=== PATIENT | male | born 1960 | race Caucasian/White ===

== ENCOUNTER → 2018-04-03 16:18 | Outpatient (CLI) | payer OTHER, SELFPAY ==
--- NOTE | 2018-04-03 16:20 | RAD_ITS ---
STUDY: X-RAY - LEFT HAND, ATTENTION FOURTH FINGER REASON FOR EXAM: Male, 58 years old. Pain TECHNIQUE: 3 view(s) of the finger were obtained. COMPARISON: None. FINDINGS: Normal metacarpal head. Normal metacarpophalangeal joint. Normal proximal phalanx. Normal middle phalanx. There is a possible avulsion fracture of the proximal dorsal aspect of the distal phalanx seen only on the lateral view Normal proximal interphalangeal joint. Normal distal interphalangeal joint. RAD/Finger(s) Min 2 Views IMPRESSION: Possible avulsion fracture of the proximal dorsal aspect of the distal phalanx with soft tissue swelling seen only on the lateral view Electronically Signed: Oswaldo Laureano MD at 17:11 EST , Service support ,
== END ==
PROVIDERS: Family Provider Family Medicine; PCP Family Medicine; Referring Provider Physician Assistant; Visit Provider Physician Assistant
DX: S61.215A Laceration without foreign body of left ring finger without damage to nail, initial encounter (principal)
CPT/HCPCS: 73140

== ENCOUNTER 2018-12-15 09:16 | Emergency (ER) | payer OTHER, SELFPAY ==
[2018-12-15 09:17] VITALS: BP 133/93; PULSE 64; RESP 17; TEMP 36.7; O2SAT 98; BMI 29.7
--- NOTE | 2018-12-15 09:30 | RAD_ITS ---
STUDY: X-RAY CHEST REASON FOR EXAM: Male, 58 years old. Chest pain. TECHNIQUE: Single AP portable view of the chest. COMPARISON: Comparison is made with prior study dated January 16, 2017. FINDINGS: EKG electrodes are seen. There is evidence of vascular congestion and mild CHF. Scattered calcified granulomas. There is no demonstrated pleural abnormality. Normal size heart. Normal mediastinum and mikhail. Normal visualized pulmonary arteries. Normal visualized aortic arch and descending thoracic aorta. Normal visualized thoracic spine. Normal visualized ribs, clavicles, and shoulders. There is no demonstrated abnormality of the visualized soft tissue structures of the upper abdomen. RAD/Chest 1 View (Portable) IMPRESSION: Mild vascular congestion and CHF. Calcified old granulomatous disease. Electronically Signed: Joel Cash, at 10:04 EDT , Service support ,
--- NOTE | 2018-12-15 09:34 | EKG12_ITS ---
Test Reason : UPPER EXTREMITY Blood Pressure : / mmHG Vent. Rate : 058 BPM Atrial Rate : 058 BPM P-R Int : 172 ms QRS Dur : 092 ms QT Int : 422 ms P-R-T Axes : 030 -19 -08 degrees QTc Int : 414 ms Sinus bradycardia Inferior UT, age undetermined, cannot be excluded Confirmed by TEJA TAVERAS, MARICRUZ ([id number]), film and video editor MARTITA ARGUETA ([id number]) on 12/17/2018 10:45:16 AM Referred By: RAJ Confirmed By:MARICRUZ LEZAMA MD
--- NOTE | 2018-12-15 09:34 | NURSING ---
NO OLD EKGS
--- NOTE | 2018-12-15 09:35 | ED.DCSUM_ITS ---
History of Present Illness Chief Complaint: Upper Extremity Injury Informant: Patient, Significant Other Onset: Today - Atraumatic left arm pain with onset 1 hour prior to presentation, Yesterday - One episode while driving home from [facility] and one episode while doing work in the back. Both episodes lasted 15 minutes. Context: Onset with activity - Show that occurred yesterday afternoon occurred with activity otherwise the first episode occurred while driving and today's episode occurred while driving his tractor., Sudden Onset Timing: Continuous - Today, Intermittent - Today x2 Quality: Intense left arm pain Location: Left arm/bicep Current Severity: Mild Maximum Severity: Severe Worsened by: Nothing Relieved by: Nothing Associated Symptoms: No associated symptoms Narrative: Patient is a 58-year-old healthy male who is a non-smoker that occurred x2 yesterday and once today. The first episode yesterday occurred while driving and lasted 15 minutes. There was no associated symptoms or radiation. Movement did not make a difference. Second episode that occurred yesterday occurred while doing work in the back with his . This episode lasted 15 minutes and no associated symptoms or radiation. Possibly 1 hour prior to presentation he developed intense left arm pain while riding on his tractor. He was not using the extremity. He states movements or use of the arm does not make the pain worse. Patient states he took 2 aspirin prior to arrival. He has no known history of coronary disease. He denies black or maroon stool. He denies history of PE or DVT. He denies leg pain, swelling discoloration. Upon further questioning patient admits to edema of his lower extremities after traumatic injury, remote past Prior similar symptoms: No Recent Illness/Hospitalization: No - Past Medical History (1) No significant past medical history Status: Acute Past Medical History - Allergies and Home Meds Allergies/Adverse Reactions: Allergies No Known Allergies Allergy (Unverified 12/15/18 09:17) Primary Care Physician: Steve James DO [Primary Care Provider] - Past Medical History: None Surgical History: no surgical history Lives: Spouse/ Significant Other Smoking Status: Never smoker Alcohol: None Drugs: None Review of Systems General: Denies: Chills, Fever, Sweats Eyes: Denies: Visual changes - bilaterally, Diplopia ENT: Denies: Rhinorrhea, Sore throat Cardiovascular: Reports: Chest pain. Denies: Palpitations, Heart racing, -, - Respiratory: Denies: Dyspnea, Cough, Dyspnea on exertion Gastrointestinal: Denies: Abdominal pain, Nausea, Vomiting, Diarrhea, Melena, Hematochezia Genitourinary: Denies: Dysuria, Hematuria, Frequency Musculoskeletal: Denies: Myalgias, Arthralgias, Neck pain, Back pain, Swelling, Extremity Pain Skin: Denies: Rash, Wounds Neurological: Denies: Headache, Weakness, Numbness Hematologic: Denies: Easy bruising, Easy bleeding Physical Exam Vital Signs/Narrative: Vital Signs Temp Pulse Resp BP Pulse Ox 12/15/18 09:17 98.0 F 64 17 133/93 H 98 Inital Vital Signs reviewed: Yes General: Well nourished, Well developed, No Acute Distress Head: Normocephalic, Atraumatic Eyes: Perrl, EOMI ENT: Moist mucous membranes, No rhinorrhea Neck: Supple, Nontender, No lymphadenopathy, No JVD Cardiovascular: Regular rate, Regular rhythm, No murmurs, Normal S1, Normal S2 Respiratory: No distress, CTA bilaterally, Chest nontender Abdomen: Soft, Nontender, Nondistended, Normal bowel sounds Back: Nontender, Normal Inspection Extremities: Nontender, No edema, - - Radial pulses 2+ and symmetric. There is no discomfort with full active range of motion active and passive left wrist, shoulder and elbow. There is no evidence of trauma. Skin: Normal color, No rash Neurological: Alert, Oriented x3, Cranial nerves II-XII grossly intact, Normal Strength, Normal Sensation, Normal Gait Psychological: Normal affect, Normal Mood Diagnostic/Tx/Re-eval Impressions Chest X-Ray 12/15/18 09:30 IMPRESSION: Mild vascular congestion and CHF. Calcified old granulomatous disease. Electronically Signed: Joel Cash, at 10:04 EDT , Service support , 12/15/18 09:30 Chest 1 View (Portable) [RAD] Stat Laboratory Results 12/15/18 12/15/18 12/15/18 10:00 10:00 12:30 WBC 5.3 RBC 4.90 Hgb 15.2 Hct 45.2 MCV 92.2 MCH 31.0 MCHC 33.6 RDW Std Deviation 43.0 RDW Coeff of Johnie 12.8 Plt Count 336 MPV 8.7 Immature Gran % (Auto) 0.400 Neut % (Auto) 67.9 Lymph % (Auto) 15.9 L [place]ola % (Auto) 11.6 H Eos % (Auto) 3.4 Baso % (Auto) 0.8 Absolute Neuts (auto) 3.6 Absolute Lymphs (auto) 0.84 Nucleated RBC % 0 Sodium 142 Potassium 4.1 Chloride 109 H Carbon Dioxide 29.0 Anion Gap 4 L BUN 24 H Creatinine 0.81 Estim Creat Clear Calc 84.36 Est GFR (MDRD) Af Amer 125 Est GFR (MDRD) Non-Af 103 BUN/Creatinine Ratio 29.6 H Glucose 94 Calcium 8.7 Troponin I < 0.015 < 0.015 With a heart score of 0 and a delta troponin of 0 patient will be discharged home to follow-up with primary care physician. - Medical Decision Making To evaluate patient's left atraumatic arm pain need to evaluate for cardiac etiology versus noncardiac etiology. Since pain is not reproducible and there are no neurovascular findings doubt traumatic or secondary to atherosclerotic disease. Will obtain EKG, troponin to assess for cardiac ischemia. Heart score of 0 and a delta troponin of 0 and a normal EKG will discharge to home to follow-up with PCP. ED Disposition - Plan for ED Patient: Disposition: Home or Assisted Living Diagnosis: Left upper arm pain Instructions: PAIN, Uncertain Cause (Acute) Referrals: Steve James DO [Primary Care Provider] - 3-5 Days
--- NOTE | 2018-12-15 09:58 | ED.RN ---
IS COMPLAINING ABOUT PT HAVE AN IV. DOES NOT THINK IT IS NEEDED. HOWEVER THE PT STATED IN TRIAGE THAT HE WAS WORRIED IT WAS CARDIAC.
--- NOTE | 2018-12-15 10:02 | ED.RN ---
PT IS DENING PAIN AT THIS TIME, DENIES NEED FOR NITRO.
[2018-12-15 10:03] VITALS: BP 144/91; PULSE 65; RESP 20; O2SAT 96; O2SAT 97
[2018-12-15 10:11] LABS: Absolute Lymphocyte Count 0.84 X10^3/uL (0.83-4.51); Absolute Neutrophil Count 3.6 X10^3/uL (2.0-7.7); Basophil# 0.04 X10^3/uL; Basophil% 0.8 % (0-1); Eosinophil# 0.18 X10^3/uL; Eosinophils% 3.4 % (0-5); Hematocrit 45.2 % (40-54); Hemoglobin 15.2 g/dL (13.0-16.5); Lymphocyte # 0.84 X10^3/ul (4.0); Lymphocyte % 15.9 % (19-41); Mean Corp Hgb Conc 33.6 g/dL (32-36); Mean Corpuscular Volume 92.2 fL (80-94); Mean Platelet Vol. 8.7 fl (6.2-12.0); Monocyte# 0.61 X10^3/uL; Monocyte% 11.6 % (0-10); NRBC Flagged by Analyzer 0 % (0-5); Neutrophil # 3.59 X10^3/uL (2.7-7.7); Neutrophil % 67.9 % (47-70); Platelet Count 336 K/mm3 (150-450); RBC Distribution Width CV 12.8 % (11.6-14.6); White Blood Count 5.3 K/mm3 (4.4-11.0)
[2018-12-15 10:34] LABS: Anion Gap 4 (5-15); BUN 24 mg/dL (7-18); BUN/Creat Ratio 29.6 RATIO (10-20); Calcium,Total 8.7 mg/dL (8.5-10.1); Chloride 109 mmol/L (98-107); Creatinine, Serum 0.81 mg/dL (0.70-1.30); EST Glomerular Filtration Rate 103 mL/min (>60); Est Glom Filt Rate - Afr Amer 125 mL/min (>60); Estimated Creatinine Clearance 84.36 ml/min; Glucose 94 mg/dL (74-106); Potassium 4.1 mmol/L (3.5-5.1); Sodium Level 142 mmol/L (136-145)
[2018-12-15 12:39] VITALS: PULSE 89; RESP 14; O2SAT 98
== END 2018-12-15 14:10 | disposition home or self-care (01) ==
PROVIDERS: Emergency Provider Emergency Medicine; Family Provider Family Medicine; PCP Family Medicine
DX: M79.622 Pain in left upper arm (principal)
CPT/HCPCS: 71045; 80048; 84484; 85025; 93005; 99284; A4216

== ENCOUNTER 2021-05-08 09:13 | Outpatient (CLI) | payer OTHER, SELFPAY ==
[2021-05-08 10:06] LABS: Absolute Lymphocyte Count 0.86 X10^3/uL (0.83-4.51); Absolute Neutrophil Count 3.3 X10^3/uL (2.0-7.7); Basophil# 0.05 X10^3/uL; Eosinophil# 0.26 X10^3/uL; Hemoglobin 14.6 g/dL (13.0-16.5); Lymphocyte # 0.86 X10^3/ul (0.83-4.51); Lymphocyte % 16.5 % (19-41); Mean Corp Hgb Conc 33.2 g/dL (32-36); Mean Corpuscular Hgb 30.6 pg (27.0-32.0); Mean Corpuscular Volume 92.2 fL (80-94); Monocyte# 0.78 X10^3/uL; Monocyte% 14.9 % (0-10); NRBC Flagged by Analyzer 0 % (0-5); Neutrophil # 3.25 X10^3/uL (2.7-7.7); Neutrophil % 62.2 % (47-70); Platelet Count 323 K/mm3 (150-450); RBC Distribution Width CV 13.2 % (11.6-14.6); RBC Distribution Width SD 45.2 fl (35.1-43.9); Red Blood Count 4.77 M/mm3 (4.6-6.2); White Blood Count 5.2 K/mm3 (4.4-11.0)
[2021-05-08 10:53] LABS: AST(SGOT) 28 U/L (15-37); Alanine Aminotransfer ALT/SGPT 37 U/L (16-61); Albumin, Serum 3.4 g/dL (3.2-5.0); Alkaline Phosphatase 89 U/L (45-117); Anion Gap 3 (5-15); BUN 27 mg/dL (7-18); Calcium,Total 8.5 mg/dL (8.5-10.1); Chloride 111 mmol/L (98-107); Cholesterol 140 mg/dL (200); Creatinine, Serum 0.82 mg/dL (0.70-1.30); EST Glomerular Filtration Rate 101 mL/min (>60); Est Glom Filt Rate - Afr Amer 122 mL/min (>60); Globulin 3.3 g/dL (2.2-4.2); Glucose 86 mg/dL (74-106); High Density Lipoprotein 41 mg/dL; PSA,Total - Annual Screen 0.68 ng/mL (0.00-4.00); Potassium 4.1 mmol/L (3.5-5.1); Protein, Total 6.7 g/dL (6.4-8.2); Sodium Level 142 mmol/L (136-145); Triglycerides 57 mg/dL; Very Low Density Lipoprotein 11 mg/dL (5-40)
== END 2021-05-08 23:59 | disposition home or self-care (01) ==
PROVIDERS: PCP Family Medicine; Referring Provider Family Medicine; Visit Provider Family Medicine
DX: Z00.00 Encounter for general adult medical examination without abnormal findings (principal); Z12.5 Encounter for screening for malignant neoplasm of prostate
CPT/HCPCS: 36415; 80053; 80061; 84153; 85025; G0103

== ENCOUNTER 2021-08-01 13:00 | Day surgery (SDC) | payer OTHER, SELFPAY ==
--- NOTE | 2021-07-23 14:00 | IMM_PTH ---
PATIENT: DANTE TAM LOC: [facility] U#:[id number] AGE/SX: 61/M ROOM: RE08/01/[address]: Dr. Manjinder Monreal DO : 1960 BED: DIS: 08/01/2021 SPEC #: [id number] RECD: 08/02/21 09:17 STATUS: HOSSEIN REIram #: [id number] FELICIA: 07/23/21 14:[address]: Manjinder Monreal DEPT: IMMUNOHISTOCHEMISTRY RECD BY: Sandy Del Angel ENTERED: 08/02/21 09:19 SP TYPE: IMMUNO OTHR DR: Dr. Steve James DO Tissues: B - Stomach, NOS Procedures: H Pylori (initial) PHYSICIAN & INSTITUTION [place] [id number] SPECIMEN INFORMATION: Tissue Source: B ? Gastric antrum biopsy Clinical Info: TENZIN, colonic polyps Specimen Number: [id number] CPT code: 75063 METHODOLOGY: Deparaffinized sections of prefer/formalin-fixed tissue or PAP/DQ stained slides are incubated with monoclonal/polyclonal antibodies/oligonucleotide probes. Localization is made via biotin free immunoperoxidase method. Appropriate controls are performed and reacted as expected. Results on target cell population are indicated in the following table: RESULTS: ANTIBODY / CLONE RESULT Block B H Pylori (polyclonal) negative These tests were developed and their performance characteristics determined by [facility]. They may not have been cleared or approved by the U.S. Food and Drug Administration. The FDA has determined that such clearance or approval is not necessary. The above immunohistochemical/dualISH markers are ordered and reviewed by the Pathologist. INTERPRETATION: B. Gastric antrum, biopsy: Negative for Helicobacter pylori organisms. SJ:laurence 08/03/2021
[2021-08-01] VITALS (7 sets, daily range): BP systolic 110–125; BP diastolic 72–103; PULSE 54–67; RESP 16–20; TEMP 36.1–36.6; O2SAT 96–98; BMI 27.3
--- NOTE | 2021-08-01 13:21 | HP.PCM_ITS ---
History and Physical Date of Admission: 08/01/21 No Known Allergies Allergy (Unverified 05/30/21 13:09) Medications cholecalciferol (vitamin D3) 50 mcg (2,000 unit) capsule 4,000 unit PO DAILY cap 05/30/21 [History Confirmed 05/30/21] meloxicam 7.5 mg tablet 7.5 mg PO DAILY 05/30/21 [History Confirmed 05/30/21] omega-3 fatty acids-fish oil 300 mg-500 mg capsule cap PO 05/30/21 [History Confirmed 05/30/21] omeprazole 20 mg capsule,delayed release 20 mg PO DAILY 05/30/21 [History Confirmed 05/30/21] PFSH Medical History Back pain GERD (gastroesophageal reflux disease) Hx of colonic polyps Family History Father Hypertension Mother Thyroid disorder Social History Smoking Status: Never smoker alcohol intake: never substance use type: does not use what type of physical activity do you participate in: walking frequency: daily HPI HPI Details: DANTE TAM, is a 61 M who presents to the office today for GERD. Heartburn if he misses dose of omeprazole 20 mg daily. Has taken it for many years. Occas takes TUMS at night depending on what he eats. Has tried esomeprazole w/o relief. No dysphagia. Had EGD years ago. No hx of Beatty's esophagus. Overdue for screening colonoscopy. Hx of polyps on his first colonoscopy, told they were pre-cancerous. No diarrhea, constipation, melena, hematochezia. ROS Const Constitutional: No fatigue, fever(s), headache(s), weight change, sleep problems, abnormal sleep pattern or change in appetite ENT ENT: No headache(s), difficulty swallowing, hoarseness or sore throat Resp Respiratory: No cough, hemoptysis or shortness of breath Cardio Cardiology: Positive for leg pain with exertion; No chest pain at rest or generalized swelling Gastro GI: Positive for heartburn; No abdominal pain, belching, bloating, change in bowel habits, change in stool character, coffee ground emesis, constipation, cramping, diarrhea, difficulty swallowing, feeling full early, incontinent of stools, Vomiting blood/hemate mesis, Blood in stool, loose stools, Black,tarry stools, nausea/dyspepsia, pain with swallowing or vomiting Musc Musculoskeletal: Positive for back pain, stiffness, sciatica, leg pain at night and leg pain with exertion; No joint pain, joint swelling, numbness or tingling Skin Skin: No itchy eyes or rash Neuro Neurology: No behavioral changes, confusion, headache(s), numbness or tingling Psych Psychiatric: No abnormal sleep pattern, No anxiety, No behavioral changes, No change in appetite, No confusion and No depression Endo Endocrine: No cold intolerance, fatigue, heat intolerance, increased thirst/drinking or weight change Aller/Imm Allergy/Immunologic: No food intolerance or itchy eyes Yoni/Lymp Hematologic/Lymphatic: No easy bleeding, easy bruising or enlarged lymph nodes Exam Const General: cooperative, healthy appearing, comfortable, no acute distress, well developed and well groomed GI Inspection: normal to inspection Quality Reporting Tobacco Screening ([facility]) Smoking Status: Never smoker Assessment and Plan Assessment and Plan (1) GERD (gastroesophageal reflux disease): Status: Acute (2) Hx of colonic polyps: Status: Inactive Plan: 61-year-old male with long history of GERD, typically well managed with omeprazole 20 mg every morning. He does sometimes need Tums in the evening. He can try taking omeprazole 20 mg every morning. History of colon polyps that he was told were precancerous. Last colonoscopy more than 10 years ago. He is scheduled for EGD to evaluate for esophagitis, Beatty's, gastritis; and scheduled for colonoscopy on August 01. Coding Level of Care Code Off vis,new,level 2 Diagnoses GERD (gastroesophageal reflux disease) K21.9 Hx of colonic polyps Z86.010 I have re-examined the patient. There are no clinical changes since date of exam.
[2021-08-01] MEDS: Lactated Ringers 1,000 ML 15 ML IV (13:27)
--- NOTE | 2021-08-01 14:00 | EGD_PTH ---
PATIENT: DANTE TAM LOC: [facility] U#:[id number] AGE/SX: 61/M ROOM: RE08/01/[address]: Dr. Manjinder Monreal DO : 1960 BED: DIS: 08/01/2021 SPEC #: [id number] RECD: 08/01/21 16:19 STATUS: HOSSEIN TRAVIS #: [id number] FELICIA: 08/01/21 14:[address]: Manjinder Monreal DEPT: SURGICAL PATHOLOGY RECD BY: Teo Zelaya ENTERED: 08/02/21 09:39 SP TYPE: EGD BIOPSY OT DR: Dr. Steve James DO Tissues: A - Esophagus, NOS B - Gastric mucous membrane Procedures: Special Stain Group II Surgery Specimen Level IV Alcian Blue/PAS (control) HEADER OPERATION: Colonoscopy, EGD ([facility]), biopsy PRE-OP DIAGNOSIS: GERD, history of colonic polyps TISSUE SUBMITTED: A ? Distal esophagus biopsy, B - Gastric antrum biopsy MICROSCOPIC DIAGNOSIS A. Distal esophagus, biopsy: Fragments of gastroesophageal mucosa with moderate chronic inflammation. Intestinal metaplasia (goblet cell metaplasia) not identified. See comment. B. Gastric antrum, biopsy: Mild to moderate gastritis. See microscopic description and comment. SJ:rg 08/03/2021 COMMENT A. Alcian blue/PAS stain with matched control is used in the evaluation of the specimen. The specimen predominantly consists of gastric mucosa. B. The results of immunohistochemistry for Helicobacter pylori will be reported separately ([id number]). MICROSCOPIC DESCRIPTION Slides are reviewed. A. The specimen shows fragments of gastric mucosa with chronic inflammatory cell infiltrates in the lamina propria consisting of lymphocytes and plasma cells, consistent with mild to moderate chronic gastritis. GROSS DESCRIPTION A - Received in fixative is one container labeled with the patient's name and designated distal esophagus biopsy. The specimen consists of multiple irregular fragments of light russ soft tissue that in aggregate measure 0.6 x 0.6 x 0.1 cm. The specimen is totally submitted in one cassette. B - Received in fixative is one container labeled with the patient's name and designated gastric antrum biopsy. The specimen consists of two irregular fragments of light russ soft tissue that in aggregate measure 0.6 x 0.5 x 0.1 cm. The specimen is totally submitted in one cassette. / SJ:rg 08/02/2021 TC:3 CPT: 93632 x2, 21539
--- NOTE | 2021-08-01 14:58 | OP.COLON_ITS ---
Patient Name: Girish Allison Procedure Date: 08/01/2021 2:10 PM Date of : 1960 Age: 61 Procedure: Colonoscopy Indications: Screening for colorectal malignant neoplasm Providers: Manjinder Monreal DO Referring MD: Steve James Medicines: Monitored Anesthesia Care Patient Profile: This is a 61 year old male. Refer to note in patient chart for documentation of history and physical. Last Colonoscopy: 5 years ago. Complications: No immediate complications. Procedure: Pre-Anesthesia Assessment: - Prior to the procedure, a History and Physical was performed, and patient medications and allergies were reviewed. The patient is competent. The risks and benefits of the procedure and the sedation options and risks were discussed with the patient. All questions were answered and informed consent was obtained. Patient identification and proposed procedure were verified by the physician in the pre-procedure area. Mental Status Examination: alert and oriented. Airway Examination: normal oropharyngeal airway and neck mobility. Respiratory Examination: clear to auscultation. CV Examination: normal. Prophylactic Antibiotics: The patient does not require prophylactic antibiotics. Prior Anticoagulants: The patient has taken no previous anticoagulant or antiplatelet agents. ASA Grade Assessment: II - A patient with mild systemic disease. After reviewing the risks and benefits, the patient was deemed in satisfactory condition to undergo the procedure. The anesthesia plan was to use moderate sedation / analgesia (conscious sedation). Immediately prior to administration of medications, the patient was re-assessed for adequacy to receive sedatives. The heart rate, respiratory rate, oxygen saturations, blood pressure, adequacy of pulmonary ventilation, and response to care were monitored throughout the procedure. The physical status of the patient was re-assessed after the procedure. After I obtained informed consent, the scope was passed under direct vision. Throughout the procedure, the patient's blood pressure, pulse, and oxygen saturations were monitored continuously. The adult colonoscope was introduced through the anus and advanced to the cecum, identified by appendiceal orifice and ileocecal valve. The colonoscopy was performed without difficulty. The patient tolerated the procedure well. The quality of the bowel preparation was good. Scope In: 2:12:28 PM Scope Withdrawal Time 0 hours 9 minutes 2 seconds Scope Out: 2:48:56 PM Total Procedure Duration Time 0 hours 36 minutes 28 seconds Findings: A few small-mouthed diverticula were found in the recto-sigmoid colon and sigmoid colon. The exam was otherwise without abnormality on direct and retroflexion views. Hemorrhoids were found during retroflexion. Impression: - Diverticulosis in the recto-sigmoid colon and in the sigmoid colon. - The examination was otherwise normal on direct and retroflexion views. - Hemorrhoids. - No specimens collected. Recommendation: - Repeat colonoscopy in 5 years for surveillance. - Continue present medications. Procedure Code(s): --- Professional --- G0121, Colorectal cancer screening; colonoscopy on individual not meeting criteria for high risk CPT copyright 2017 [employer]. All rights reserved. The codes documented in this report are preliminary and upon tractor crane engineer review may be revised to meet current compliance requirements. Manjinder Monreal DO 08/01/2021 2:57:58 PM This report has been signed electronically. Number of Addenda: 1 Note Initiated On: 08/01/2021 2:10 PM Addendum Number: 1 Addendum Date: 12/22/2021 6:24:38 AM MAC was used as sedation for this procedure. Manjinder Monreal DO 12/22/2021 6:24:42 AM This report has been signed electronically.
--- NOTE | 2021-08-01 14:59 | OP.CCLET_ITS ---
12/22/2021 Steve James [address] [facility] [place] [address] Re : Colonoscopy procedure for Girish Allison Dear Dr. James This procedure was performed on Sunday, August 01, 2021. My impressions and recommendations are as follows: Impressions : - Diverticulosis in the recto-sigmoid colon and in the sigmoid colon. - The examination was otherwise normal on direct and retroflexion views. - Hemorrhoids. - No specimens collected. Recommendations : - Repeat colonoscopy in 5 years for surveillance. - Continue present medications. My findings are described in the full procedure note, which is enclosed. If I can be of further assistance, please feel free to contact me at . Sincerely, Manjinder Friend, 08/01/2021 2:57:58 PM This report has been signed electronically.
--- NOTE | 2021-08-01 15:02 | OP.EGD_ITS ---
Patient Name: Girish Allison Procedure Date: 08/01/2021 2:01 PM Date of : 1960 Age: 61 Procedure: Upper GI endoscopy Indications: Heartburn Providers: Manjinder Monreal DO Referring MD: Steve James Medicines: Monitored Anesthesia Care Patient Profile: This is a 61 year old male. Refer to note in patient chart for documentation of history and physical. Patient has symptoms of chronic heartburn. Complications: No immediate complications. Procedure: Pre-Anesthesia Assessment: - Prior to the procedure, a History and Physical was performed, and patient medications and allergies were reviewed. The patient is competent. The risks and benefits of the procedure and the sedation options and risks were discussed with the patient. All questions were answered and informed consent was obtained. Patient identification and proposed procedure were verified by the physician in the pre-procedure area. Mental Status Examination: alert and oriented. Airway Examination: normal oropharyngeal airway and neck mobility. Respiratory Examination: clear to auscultation. CV Examination: normal. Prophylactic Antibiotics: The patient does not require prophylactic antibiotics. Prior Anticoagulants: The patient has taken no previous anticoagulant or antiplatelet agents. ASA Grade Assessment: II - A patient with mild systemic disease. After reviewing the risks and benefits, the patient was deemed in satisfactory condition to undergo the procedure. The anesthesia plan was to use moderate sedation / analgesia (conscious sedation). Immediately prior to administration of medications, the patient was re-assessed for adequacy to receive sedatives. The heart rate, respiratory rate, oxygen saturations, blood pressure, adequacy of pulmonary ventilation, and response to care were monitored throughout the procedure. The physical status of the patient was re-assessed after the procedure. After obtaining informed consent, the endoscope was passed under direct vision. Throughout the procedure, the patient's blood pressure, pulse, and oxygen saturations were monitored continuously. The pediatric colonoscope was introduced through the mouth, and advanced to the second part of duodenum. The upper GI endoscopy was accomplished without difficulty. The patient tolerated the procedure well. Scope In: 2:05:09 PM Scope Out: 2:09:58 PM Total Procedure Duration Time 0 hours 4 minutes 49 seconds Findings: The Z-line was irregular and was found 38 cm from the incisors. Biopsies were taken with a cold forceps for histology. Verification of patient identification for the specimen was done. Estimated blood loss was minimal. Patchy mildly erythematous mucosa without bleeding was found in the gastric body. Biopsies were taken with a cold forceps for histology. Verification of patient identification for the specimen was done. Estimated blood loss was minimal. The second portion of the duodenum was normal. Impression: - Z-line irregular, 38 cm from the incisors. Biopsied. - Erythematous mucosa in the gastric body. Biopsied. - Normal second portion of the duodenum. Recommendation: - Discharge patient to home. - Resume previous diet. - Continue present medications. - Await pathology results. Procedure Code(s): --- Professional --- 08254, LT, Esophagogastroduodenoscopy, flexible, transoral; with biopsy, single or multiple CPT copyright 2017 [employer]. All rights reserved. The codes documented in this report are preliminary and upon diversified crops farmworker review may be revised to meet current compliance requirements. Manjinder Monreal DO 08/01/2021 3:01:59 PM This report has been signed electronically. Number of Addenda: 1 Note Initiated On: 08/01/2021 2:01 PM Addendum Number: 1 Addendum Date: 12/22/2021 6:24:22 AM MAC was used as sedation for this procedure. Manjinder Monreal DO 12/22/2021 6:24:30 AM This report has been signed electronically.
--- NOTE | 2021-08-01 15:03 | OP.CCLET_ITS ---
12/22/2021 Steve James [address] [facility] [place] [address] Re : Upper GI endoscopy procedure for Girish Allison Dear Dr. James This procedure was performed on Sunday, August 01, 2021. My impressions and recommendations are as follows: Impressions : - Z-line irregular, 38 cm from the incisors. Biopsied. - Erythematous mucosa in the gastric body. Biopsied. - Normal second portion of the duodenum. Recommendations : - Discharge patient to home. - Resume previous diet. - Continue present medications. - Await pathology results. My findings are described in the full procedure note, which is enclosed. If I can be of further assistance, please feel free to contact me at . Sincerely, Manjinder Monreal, 08/01/2021 3:01:59 PM This report has been signed electronically.
== END 2021-08-01 15:53 | disposition home or self-care (01) ==
LOC: EN 13:00 → AC 13:02
PROVIDERS: PCP Family Medicine; Referring Provider Family Medicine; Visit Provider Internal Medicine Gastroenterology
PROC: 0DJD8ZZ Inspection of Lower Intestinal Tract, Via Natural or Artificial Opening Endoscopic (ICD-10-PCS; CPT 45378; principal; 2021-08-01 13:55)
DX: Z12.11 Encounter for screening for malignant neoplasm of colon (principal); K57.30 Diverticulosis of large intestine without perforation or abscess without bleeding; K21.9 Gastro-esophageal reflux disease without esophagitis; K29.70 Gastritis, unspecified, without bleeding; K64.9 Unspecified hemorrhoids; Z79.899 Other long term (current) drug therapy; Z86.010 Personal history of colon polyps
CPT/HCPCS: 45378; 43239; 88305; 88313; 88342; J7120; J2405

== ENCOUNTER → 2022-05-17 | Outpatient (CLI) | payer OTHER, SELFPAY ==
[2022-05-17 15:20] LABS: Absolute Lymphocyte Count 1.19 X10^3/uL (0.83-4.51); Absolute Neutrophil Count 4.6 X10^3/uL (2.0-7.7); Basophil# 0.06 X10^3/uL; Basophil% 0.9 % (0-1); Eosinophil# 0.31 X10^3/uL; Eosinophils% 4.4 % (0-5); Hematocrit 46.4 % (40-54); Hemoglobin 15.1 g/dL (13.0-16.5); Lymphocyte # 1.19 X10^3/ul (0.83-4.51); Mean Corp Hgb Conc 32.5 g/dL (32-36); Mean Corpuscular Hgb 30.4 pg (27.0-32.0); Mean Corpuscular Volume 93.4 fL (80-94); Mean Platelet Vol. 9.2 fl (6.2-12.0); Monocyte# 0.79 X10^3/uL; Monocyte% 11.3 % (0-10); NRBC Flagged by Analyzer 0 % (0-5); Neutrophil # 4.64 X10^3/uL (2.7-7.7); Neutrophil % 66.1 % (47-70); Platelet Count 378 K/mm3 (150-450); RBC Distribution Width CV 12.9 % (11.6-14.6); RBC Distribution Width SD 44.2 fl (35.1-43.9); Red Blood Count 4.97 M/mm3 (4.6-6.2)
[2022-05-17 15:52] LABS: ALB/GLOB Ratio 1.2 RATIO (0.9-2.4); AST(SGOT) 28 U/L (15-37); Alanine Aminotransfer ALT/SGPT 44 U/L (16-61); Albumin, Serum 3.8 g/dL (3.2-5.0); Alkaline Phosphatase 104 U/L (45-117); Anion Gap 5 (5-15); BUN 25 mg/dL (7-18); BUN/Creat Ratio 32.5 RATIO (10-20); Chloride 108 mmol/L (98-107); Cholesterol 164 mg/dL (200); Creatinine, Serum 0.77 mg/dL (0.70-1.30); EST Glomerular Filtration Rate 108 mL/min (>60); Est Glom Filt Rate - Afr Amer 131 mL/min (>60); Globulin 3.1 g/dL (2.2-4.2); Glucose 100 mg/dL (74-106); High Density Lipoprotein 43 mg/dL; PSA,Total - Annual Screen 0.54 ng/mL (0.00-4.00); Potassium 4.1 mmol/L (3.5-5.1); Protein, Total 6.9 g/dL (6.4-8.2); Sodium Level 140 mmol/L (136-145); Triglycerides 120 mg/dL; Very Low Density Lipoprotein 24 mg/dL (5-40)
== END | disposition home or self-care (01) ==
PROVIDERS: PCP Family Medicine; Visit Provider Family Medicine
DX: Z00.00 Encounter for general adult medical examination without abnormal findings (principal); Z12.5 Encounter for screening for malignant neoplasm of prostate
CPT/HCPCS: 36415; 80053; 80061; 84153; 85025; G0103

== ENCOUNTER → 2022-05-30 | Outpatient (CLI) | payer OTHER, SELFPAY ==
--- NOTE | 2022-05-30 10:37 | US_ITS ---
PROCEDURES: ULTRASOUND AORTA REASON FOR EXAM: Male, 62 years old. FAM HX AORTIC ANEURYSM TECHNIQUE: Ultrasound evaluation of the aorta was performed with real-time and static hayes-scale imaging. COMPARISON: None. FINDINGS: There is no elongation or tortuosity of the abdominal aorta. Aorta measures: Proximal 2.4 cm. Middle 1.9 cm. Distal 1.8 cm. Aorta measure transversely: Proximal 2.7 cm. Middle 2.1 cm. Distal 2.3 cm. Right iliac artery measures: 1.3 cm. Right iliac artery measure transversely: 1.3 cm. Left iliac artery measures: 1.2 cm. Left iliac artery measure transversely: 1.3 cm. There is no demonstrated aneurysm.. US/Aorta IMPRESSION: Normal abdominal aorta. Electronically Signed: Joel Cash MD at 12:28 EST ,
== END | disposition home or self-care (01) ==
PROVIDERS: PCP Family Medicine; Referring Provider Family Medicine; Visit Provider Family Medicine
DX: Z13.6 Encounter for screening for cardiovascular disorders (principal); Z82.49 Family history of ischemic heart disease and other diseases of the circulatory system
CPT/HCPCS: 76775

== ENCOUNTER → 2022-06-28 | Outpatient (CLI) | payer OTHER, SELFPAY ==
--- NOTE | 2022-06-28 16:36 | MRI_ITS ---
STUDY: MRI LUMBAR SPINE WITHOUT CONTRAST REASON FOR EXAM: Male, 62 years old. CHRONIC BACK PAIN,BILAT LE HEAVINESS TECHNIQUE: MRI examination of the lumbar spine obtained with standard protocol including multiplanar multiecho noncontrast imaging. Contrast: No contrast administered. COMPARISON: None FINDINGS: Vertebral bodies and alignment. 1. Vertebral body height and alignment are maintained. There is transitional anatomy with partial lumbarization of S1. 2. No evidence of fracture or subluxation. There is a hemangioma at L3. 3. Paraspinous soft tissue planes have normal appearance. Normal appearance of the muscular fascial planes of the erector spinae. 4. Normal appearance of the sacrum and sacroiliac joints. Intervertebral disks levels. T12-L1: Normal endplates. Normal disc height, hydration and morphology. Normal bilateral facet joints. Normal central canal and bilateral lateral recesses. Normal bilateral intervertebral neural foramina. L1-2: No disc herniation canal or foraminal narrowing L2-3: Disc desiccation and broad-based a concentric disc protrusion with deformity of the anterior epidural space at, central thecal sac measures approximately 10 mm. There is mild narrowing of lateral recesses without evidence of jesus nerve root impingement. There is a RIGHT lateral eccentric portion of the disc protrusion contacting and displacing the RIGHT L2 nerve root lateral to the neural foramen L3-4: Disc desiccation, broad-based posterior disc bulge/protrusion with deformity of the anterior vertebral space, central thecal sac narrowed to 9 mm. There is asymmetric narrowing of lateral recesses greater on LEFT than RIGHT with impingement of the LEFT L4 nerve root. L4-5: Disc desiccation, loss of disc height, broad-based posterior disc bulge/protrusion osteophyte complex with deformity the intervertebral space at, central thecal sac is maintained at 11 mm. There is crowding of nerve roots lateral recesses bilaterally. Mild narrowing of neural foramina without evidence of jesus nerve root impingement. L5-S1: Disc desiccation loss of disc height, broad-based chronic appearing disc protrusion osteophyte complex with deformity the anterior epidural space. Central thecal sac measures 13 mm. There is crowding of nerve roots in the lateral recesses. Early or mild RIGHT S1 nerve root impingement is a consideration. There is narrowing of neural foramina greater on the RIGHT than LEFT with potential of RIGHT L5 nerve root impingement. Spinal cord: Normal appearance of the spinal cord and conus. Conus is located at L1. Cauda equina has normal appearance. No evidence of cord compression or edema. No intramedullary signal abnormality noted. MRI/Spine Lumbar (Routine) IMPRESSION: 1. Multilevel cervical spondylosis, there is broad-based chronic appearing disc protrusion at L2-3 without jesus canal stenosis. There is a RIGHT lateral component of the protrusion with contact and displacement of the RIGHT L2 nerve root lateral to the neural foramen. 2. Broad-based chronic appearing protrusion at L3-4, mild canal narrowing, there is however compression of the LEFT lateral recess with early LEFT L4 nerve root impingement suspected. 3. Broad-based protrusion at L4-5 without canal stenosis or jesus nerve root impingement 4. Broad-based chronic appearing protrusion L5-S1 without canal stenosis however early impingement of the RIGHT S1 nerve roots 5. No evidence of fracture destructive bony process. Transitional anatomy is present with partial lumbarization of S1. 6. Normal appearance of the visualized spinal cord and conus without intramedullary signal abnormality or cord compression. Electronically Signed: Santos Agosto MD at 20:26 EDT ,
== END | disposition home or self-care (01) ==
PROVIDERS: PCP Family Medicine; Referring Provider Family Medicine; Visit Provider Family Medicine
DX: M48.062 Spinal stenosis, lumbar region with neurogenic claudication (principal); G89.29 Other chronic pain
CPT/HCPCS: 72148

== ENCOUNTER → 2023-05-13 | Outpatient (CLI) | payer MEDICARE, OTHER, SELFPAY ==
--- NOTE | 2023-05-13 12:36 | RAD_ITS ---
STUDY: X-RAY CHEST REASON FOR EXAM: Male, 63 years old. COUGH TECHNIQUE: PA and lateral views of the chest. COMPARISON: December 15, 2018 FINDINGS: The lungs are clear and expanded. There is no demonstrated pleural abnormality. Normal size heart. Normal mediastinum and mikhail. Normal visualized pulmonary arteries. Normal visualized aortic arch and descending thoracic aorta. There is demineralization of the osseous structures. There are stable healed left rib fractures. Normal visualized ribs, clavicles, and shoulders. There is no demonstrated abnormality of the visualized soft tissue structures of the upper abdomen. RAD/Chest PA and Lateral IMPRESSION: No acute cardiopulmonary disease. Electronically Signed: Asad Gonzalez MD at 23:21 EST ,
[2023-05-13 16:08] LABS: Absolute Lymphocyte Count 1.24 X10^3/uL (0.83-4.51); Basophil# 0.07 X10^3/uL; Basophil% 0.9 % (0-1); Eosinophil# 0.25 X10^3/uL; Eosinophils% 3.3 % (0-5); Hematocrit 46.2 % (40-54); Hemoglobin 14.7 g/dL (13.0-16.5); Lymphocyte # 1.24 X10^3/ul (0.83-4.51); Lymphocyte % 16.4 % (19-41); Mean Corp Hgb Conc 31.8 g/dL (32-36); Mean Corpuscular Hgb 29.6 pg (27.0-32.0); Mean Corpuscular Volume 93.1 fL (80-94); Mean Platelet Vol. 9.1 fl (6.2-12.0); Monocyte# 0.96 X10^3/uL; Monocyte% 12.7 % (0-10); NRBC Flagged by Analyzer 0 % (0-5); Neutrophil # 5.03 X10^3/uL (2.7-7.7); Neutrophil % 66.4 % (47-70); Platelet Count 442 K/mm3 (150-450); RBC Distribution Width CV 13.7 % (11.6-14.6); RBC Distribution Width SD 47.3 fl (35.1-43.9); Red Blood Count 4.96 M/mm3 (4.6-6.2); White Blood Count 7.6 K/mm3 (4.4-11.0)
[2023-05-13 16:27] LABS: ALB/GLOB Ratio 1.3 RATIO (0.9-2.4); AST(SGOT) 31 U/L (15-37); Alanine Aminotransfer ALT/SGPT 51 U/L (16-61); Albumin, Serum 3.8 g/dL (3.2-5.0); Alkaline Phosphatase 96 U/L (45-117); Anion Gap 2 (5-15); BUN 23 mg/dL (7-18); BUN/Creat Ratio 28.4 RATIO (10-20); Calcium,Total 9.2 mg/dL (8.5-10.1); Chloride 110 mmol/L (98-107); Cholesterol 163 mg/dL (200); Creatinine, Serum 0.81 mg/dL (0.70-1.30); EST Glomerular Filtration Rate 102 mL/min (>60); Est Glom Filt Rate - Afr Amer 123 mL/min (>60); Glucose 91 mg/dL (74-106); High Density Lipoprotein 45 mg/dL; Potassium 4.5 mmol/L (3.5-5.1); Protein, Total 6.8 g/dL (6.4-8.2); Sodium Level 141 mmol/L (136-145); Triglycerides 130 mg/dL; Very Low Density Lipoprotein 26 mg/dL (5-40)
== END | disposition home or self-care (01) ==
LOC: MTLAB 12:35
PROVIDERS: PCP Family Medicine; Referring Provider Family Medicine; Visit Provider Family Medicine
DX: Z12.5 Encounter for screening for malignant neoplasm of prostate (principal); I10 Essential (primary) hypertension; R05.3 Chronic cough
CPT/HCPCS: 36415; 71046; 80053; 80061; 85025

== ENCOUNTER → 2024-05-04 | Outpatient (CLI) | payer MEDICARE, OTHER, SELFPAY ==
--- NOTE | 2024-05-04 13:17 | RAD_ITS ---
PROCEDURE: CHEST PA AND LATERAL REASON FOR EXAM: Persistent intermittent cough. TECHNIQUE: Frontal and lateral views of the chest. COMPARISON: 05/13/2023 FINDINGS: The heart size is normal. The mediastinal contour is unremarkable. No acute consolidation, pleural effusion or pneumothorax. The bones are unremarkable. RAD/Chest PA and Lateral IMPRESSION: No acute consolidation, pleural effusion or pneumothorax. Reading Location: [id number]
[2024-05-04 15:34] LABS: Absolute Lymphocyte Count 1.02 X10^3/uL (0.83-4.51); Absolute Neutrophil Count 4.3 X10^3/uL (2.0-7.7); Basophil# 0.05 X10^3/uL; Basophil% 0.8 % (0-1); Eosinophil# 0.18 X10^3/uL; Eosinophils% 2.8 % (0-5); Hematocrit 43.6 % (40-54); Lymphocyte # 1.02 X10^3/ul (0.83-4.51); Mean Corp Hgb Conc 32.1 g/dL (32-36); Mean Corpuscular Hgb 29.8 pg (27.0-32.0); Mean Corpuscular Volume 92.8 fL (80-94); Mean Platelet Vol. 8.8 fl (6.2-12.0); Monocyte# 0.85 X10^3/uL; Monocyte% 13.3 % (0-10); NRBC Flagged by Analyzer 0 % (0-5); Neutrophil # 4.25 X10^3/uL (2.7-7.7); Neutrophil % 66.8 % (47-70); Platelet Count 552 K/mm3 (150-450); RBC Distribution Width CV 13.5 % (11.6-14.6); RBC Distribution Width SD 46.5 fl (35.1-43.9); White Blood Count 6.4 K/mm3 (4.4-11.0)
[2024-05-04 16:11] LABS: ALB/GLOB Ratio 1.1 RATIO (0.9-2.4); AST(SGOT) 39 U/L (15-37); Alanine Aminotransfer ALT/SGPT 77 U/L (16-61); Albumin, Serum 3.6 g/dL (3.2-5.0); Alkaline Phosphatase 108 U/L (45-117); Anion Gap 5 (5-15); BUN 23 mg/dL (7-18); BUN/Creat Ratio 27.1 RATIO (10-20); CPK Total, Creatine Kinase 78 U/L (39-308); Calcium,Total 8.8 mg/dL (8.5-10.1); Chloride 112 mmol/L (98-107); Creatinine, Serum 0.85 mg/dL (0.70-1.30); EST Glomerular Filtration Rate 96 mL/min (>60); Est Glom Filt Rate - Afr Amer 116 mL/min (>60); Globulin 3.3 g/dL (2.2-4.2); Glucose 103 mg/dL (74-106); Potassium 4.1 mmol/L (3.5-5.1); Protein, Total 6.9 g/dL (6.4-8.2); Sodium Level 142 mmol/L (136-145); Thyroid Stim Hormone (TSH) 0.512 uIU/mL (0.358-3.740)
[2024-05-04 16:30] LABS: Vitamin B12 726 pg/mL (211-911); Vitamin D,25 Hydroxy 41.6 ng/mL
== END | disposition home or self-care (01) ==
LOC: MTLAB 13:02
PROVIDERS: PCP Family Medicine; Referring Provider Family Medicine; Visit Provider Family Medicine
DX: Z12.5 Encounter for screening for malignant neoplasm of prostate (principal); R53.83 Other fatigue; R53.1 Weakness; R05.9 Cough, unspecified; E55.9 Vitamin D deficiency, unspecified
CPT/HCPCS: 36415; 71046; 80053; 82306; 82533; 82550; 82607; 84153; 84443; 85025; G0103

== ENCOUNTER → 2024-06-09 | Outpatient (CLI) | payer MEDICARE, OTHER, SELFPAY ==
[2024-06-09 18:23] LABS: Absolute Lymphocyte Count 1.26 X10^3/uL (0.83-4.51); Absolute Neutrophil Count 4.3 X10^3/uL (2.0-7.7); Basophil# 0.06 X10^3/uL; Basophil% 0.9 % (0-1); Eosinophil# 0.28 X10^3/uL; Eosinophils% 4.2 % (0-5); Hematocrit 42.8 % (40-54); Hemoglobin 14.6 g/dL (13.0-16.5); Lymphocyte # 1.26 X10^3/ul (0.83-4.51); Lymphocyte % 18.8 % (19-41); Mean Corp Hgb Conc 34.1 g/dL (32-36); Mean Corpuscular Hgb 31.3 pg (27.0-32.0); Mean Corpuscular Volume 91.6 fL (80-94); Mean Platelet Vol. 9.4 fl (6.2-12.0); Monocyte# 0.76 X10^3/uL; Monocyte% 11.3 % (0-10); NRBC Flagged by Analyzer 0 % (0-5); Neutrophil # 4.34 X10^3/uL (2.7-7.7); Neutrophil % 64.7 % (47-70); Platelet Count 407 K/mm3 (150-450); RBC Distribution Width CV 13.7 % (11.6-14.6); RBC Distribution Width SD 46.6 fl (35.1-43.9); Red Blood Count 4.67 M/mm3 (4.6-6.2); White Blood Count 6.7 K/mm3 (4.4-11.0)
[2024-06-09 19:00] LABS: AST(SGOT) 32 U/L (<=37); Alanine Aminotransfer ALT/SGPT 30 U/L (<=46); Albumin, Serum 4.1 g/dL (3.4-4.8); Alkaline Phosphatase 106 U/L (40-129); Bilirubin, Direct 0.18 mg/dL (0.00-0.30); Globulin 2.5 g/dL (2.2-4.2); Protein, Total 6.6 g/dL (5.9-8.4); Total Bilirubin 0.45 mg/dL (0.00-1.30)
== END | disposition home or self-care (01) ==
LOC: MTLAB 14:42
PROVIDERS: PCP Family Medicine; Referring Provider Family Medicine; Visit Provider Family Medicine
DX: D75.839 Thrombocytosis, unspecified (principal); R74.8 Abnormal levels of other serum enzymes
CPT/HCPCS: 36415; 80076; 85025

== ENCOUNTER → 2024-12-03 | Outpatient (CLI) | payer MEDICARE, OTHER, SELFPAY ==
--- NOTE | 2024-12-03 13:37 | MRI_ITS ---
PROCEDURE: SPINE LUMBAR (ROUTINE) 12/03/2024 REASON FOR EXAM: LUMBAR STENOSIS Low back pain TECHNIQUE: Procedure Code: MRISPL Modality: MR Procedure: SPINE LUMBAR (ROUTINE) COMPARISON: June 2022. FINDINGS: T9 through L1: Vertebral bodies: Negative. Disk Space: Negative. Negative for Modic changes. Facet Joints: Negative for bilateral facet joint hypertrophy. Neural foramina: Negative for neural foraminal narrowing Spinal Canal: Negative for central spinal narrowing. L1-2: Vertebral bodies: Negative. Disk Space: Disc desiccation moderate loss of disc height. Moderate diffuse disc bulge. Edematous endplate changes. Facet Joints: Moderate bilateral facet joint hypertrophy. Neural foramina: Mild bilateral neural foraminal narrowing neural foraminal narrowing Spinal Canal: Mild left subarticular zone narrowing. Mild left central spinal narrowing. L2-3: Vertebral bodies: Hemangioma L2. Disk Space: Disc desiccation mild loss of disc height. Negative for Modic changes. Facet Joints: [id number] bilateral facet joint hypertrophy. Neural foramina: Moderate neural foraminal narrowing Spinal Canal: Negative for subarticular zone narrowing. Negative for central spinal narrowing. L3-4: Vertebral bodies: Negative. Disk Space: Disc desiccation mild loss of disc height. Mild posterior osteophyte disc complex. Negative for Modic changes. Facet Joints: Moderate bilateral facet joint hypertrophy. Neural foramina: Mild bilateral neural foraminal narrowing Spinal Canal: Mild right subarticular zone narrowing. Slight right central spinal narrowing. L4-5: Vertebral bodies: Negative. Disk Space: Disc desiccation with severe loss of disc height. Mild diffuse posterior osteophyte disc complex. Facet Joints: Moderate bilateral facet joint hypertrophy. Neural foramina: Moderate bilateral neural foraminal narrowing Spinal Canal: Mild bilateral subarticular zone narrowing. Slight central spinal narrowing. L5-S1: Vertebral bodies: Negative. Disk Space: Negative. Negative for Modic changes. Facet Joints: Negative for bilateral facet joint hypertrophy. Neural foramina: Negative for neural foraminal narrowing Spinal Canal: Negative for subarticular zone narrowing. Negative for central spinal narrowing. Vertebrae: Normal bone marrow signal. Conus Medullaris: Spinal cord is normal and ends at L1. Imaged kidneys aorta otherwise negative. The remainder of the exam negative. MRI/Spine Lumbar (Routine) IMPRESSION: Edematous endplate changes L1-L2. Multilevel degenerative changes lumbar spine overall most prominent L4-5 and L2 -L3 as above. Reading Location: [id number]
== END | disposition home or self-care (01) ==
LOC: OPMRI 13:34
PROVIDERS: PCP Family Medicine; Referring Provider Orthopaedic Surgery Orthopaedic Surgery of the Spine; Visit Provider Orthopaedic Surgery Orthopaedic Surgery of the Spine
DX: M48.061 Spinal stenosis, lumbar region without neurogenic claudication (principal)
CPT/HCPCS: 72148

== ENCOUNTER → 2025-03-08 | Outpatient (CLI) | payer MEDICARE, OTHER, SELFPAY ==
--- NOTE | 2025-03-08 16:34 | RAD_ITS ---
PROCEDURE: CHEST PA AND LATERAL 03/08/2025 REASON FOR EXAM: COUGH TECHNIQUE: Procedure Code: RADCXR Modality: DX Procedure: CHEST PA AND LATERAL COMPARISON: 05/04/2024 FINDINGS: Chronic lung markings. No focal consolidation. No pleural effusion or pneumothorax. Cardiac silhouette is within normal limits. No acute fractures. RAD/Chest PA and Lateral IMPRESSION: Chronic lung markings. No focal consolidations. Reading Location: [id number]
== END | disposition home or self-care (01) ==
LOC: MTRAD 16:33
PROVIDERS: PCP Family Medicine; Referring Provider Family Medicine; Visit Provider Family Medicine
DX: R05.9 Cough, unspecified (principal)
CPT/HCPCS: 71046

== ENCOUNTER → 2025-03-09 | Outpatient (CLI) | payer MEDICARE, OTHER, SELFPAY | END | disposition home or self-care (01) | LOC: LABSPEC 11:35 | PROVIDERS: PCP Family Medicine; Referring Provider Family Medicine; Visit Provider Family Medicine | DX: J18.9 Pneumonia, unspecified organism (principal) | CPT/HCPCS: 87070; 87205 ==